=== PATIENT | female | born 1965 | race Caucasian/White ===

== ENCOUNTER 2020-01-23 06:01 | Outpatient (CLI) | payer OTHER ==
[2020-01-23 16:19] LABS: Hemoglobin 13.2 g/dL (12.0-16.0); Mean Corpuscular HGB CONC 31.9 g/dL (32.0-36.0); Mean Corpuscular Hemoglobin 21.2 pg (27.0-31.0); Mean Corpuscular Volume 66.5 fL (78.0-98.0); Mean Platelet Volume 11.9 fL (7.4-10.4); Platelet Count 203 thou/uL (130-400); RBC Distribution Width 14.5 % (11.5-14.5); Red Blood Cell (RBC) Count 6.24 mill/uL (4.20-5.40); White Blood Cell (WBC) Count 6.3 thou/uL (4.8-10.8)
[2020-01-23 16:20] LABS: INR-International Normal Ratio 1.1; PTT 28.9 sec (22.9-36.1); Prothrombin Time 13.8 sec (12.0-14.7)
[2020-01-23 17:06] LABS: Anion Gap 17 mmol/L (10-20); BUN (Urea Nitrogen) 25 mg/dL (9.8-20.1); Calc. Creatinine Clearance 0 mL/min (70-130); Calcium 9.4 mg/dL (7.8-10.44); Carbon Dioxide 24 mmol/L (22-29); Chloride 103 mmol/L (98-107); Estimated GFR-MDRD 90; Glucose 80 mg/dL (70-105); Potassium 4.2 mmol/L (3.5-5.1); Sodium 140 mmol/L (136-145)
[2020-01-24 14:48] LABS: SARS-CoV-2 MS2 Positive; SARS-CoV-2 N Gene Negative; SARS-CoV-2 S Gene Negative; SARS-CoV-2 by NAA Not Detected (NotDetected); SARS-CoV-2 orf1ab Negative
--- NOTE | 2020-01-26 15:45 | EKG ---
Test Reason : PREOP Blood Pressure : / mmHG Vent. Rate : 067 BPM Atrial Rate : 067 BPM P-R Int : 000 ms QRS Dur : 176 ms QT Int : 498 ms P-R-T Axes : 068 -68 092 degrees QTc Int : 526 ms Ventricular-paced rhythm with occasional Premature ventricular complexes Abnormal ECG When compared with ECG of 18-DEC-2019 14:02, Vent. rate has decreased BY 2 BPM Confirmed by JOSEP ACOSTA M.D. ([id number]) on 01/26/2020 3:45:35 PM Referred By: Prabhjot JUAREZ Confirmed By:JOSEP ACOSTA M.D.
== END 2020-01-23 06:02 | disposition home or self-care (01) ==
LOC: LABBT 06:01
PROVIDERS: ATTEND Internal Medicine Cardiovascular Disease
DX: Z01.818 Encounter for other preprocedural examination (principal); I50.9 Heart failure, unspecified; Z20.828 Contact with and (suspected) exposure to other viral communicable diseases
CPT/HCPCS: 80048; 85027; 85610; 85730; 87635; 93005; 93010; U0003

== ENCOUNTER 2020-01-28 06:31 | Day surgery (SDC) | payer OTHER ==
[2020-01-27 11:54] VITALS: BMI 31.4
[2020-01-28] MEDS ORDERED: Clindamycin/D5W 900 mg/50 ml Premix Bag ONE (06:48)
[2020-01-28] MEDS ORDERED: Levofloxacin 500 mg/D5W 100 ml Premix Bag ONE (06:48)
[2020-01-28] MEDS ORDERED: Midazolam HCl 2 mg/2 ml Vial ONE (08:01)
[2020-01-28] MEDS ORDERED: Propofol 500 MG/50 ML VIAL ONE (08:05)
[2020-01-28] MEDS ORDERED: Fentanyl 100 MCG/2 ML VIAL ONE ×2 (08:06→11:17)
[2020-01-28] MEDS ORDERED: Lidocaine 1% (PF) 30 ML VIAL ONE ×2 (08:09→08:13)
[2020-01-28] MEDS ORDERED: CEFAZOLIN 1 GM VIAL ONE (08:41)
[2020-01-28] MEDS ORDERED: Heparin 0 ML ONE (08:41)
[2020-01-28] MEDS ORDERED: Clindamycin/D5W 600 mg/50 ml Premix Bag ONE (08:49)
--- NOTE | 2020-01-28 11:47 | RAD ---
EXAM: Single view of the chest HISTORY: Upgraded biventricular pacemaker COMPARISON: 07/28/2016 FINDINGS: Single view of the chest shows an enlarged but stable cardiomediastinal silhouette. The pa tient is status post sternotomy. There is a triple lead pacemaker with its leads in the right atrium, right ventricle, and coronary sinus. No pneumothorax is seen. There is no evidence of consoli dation, mass, or pleural effusion. No acute osseous abnormality. IMPRESSION: Status post pacemaker exchange without acute cardiopulmonary process.
[2020-01-28] MEDS ORDERED: Acetaminophen/Codeine 30-300mg Tablet ONE (13:38)
[2020-01-28] MEDS ORDERED: Ondansetron PF 4 MG/2 ML Vial ONE (13:56)
[2020-01-28] MEDS ORDERED: PHENYLEPHRINE-NS 100 MCG/ML 10 ML SYRINGE ONE (14:40)
[2020-01-28] MEDS ORDERED: EPHEDRINE 25 MG/5 ML SYRINGE ONE (14:40)
[2020-01-28] MEDS ORDERED: Non-Formulary Medication 1 EACH PO PRN (15:22)
[2020-01-28] MEDS ORDERED: Promethazine HCl 25 MG/ML VIAL IM/IV PRN (15:30)
[2020-01-28] MEDS ORDERED: Ondansetron HCl/PF 4 MG/2 ML Vial IVP PRN (15:30)
[2020-01-28] MEDS ORDERED: Ketorolac Tromethamine 30 MG/ML VIAL IM/IV PRN (15:30)
[2020-01-28] MEDS ORDERED: Acetaminophen/Codeine 30-300mg Tablet PO PRN ×2 (15:30)
[2020-01-28] MEDS ORDERED: PACU-Morphine 4MG/ML VIAL SLOW IVP PRN (15:30)
[2020-01-28] MEDS ORDERED: Iopamidol 370 76% 50 ML VIAL FS ONE (16:10)
[2020-01-28] MEDS ORDERED: Clindamycin 150 MG CAP PO SCH (18:00)
== END 2020-01-28 15:18 | disposition home or self-care (01) ==
LOC: SDC 06:31
PROVIDERS: ATTEND Internal Medicine Cardiovascular Disease
PROC: 0JWT3PZ Revision of Cardiac Rhythm Related Device in Trunk Subcutaneous Tissue and Fascia, Percutaneous Approach (ICD-10-PCS; principal; 2020-01-28)
PROC: 02WA3MZ Revision of Cardiac Lead in Heart, Percutaneous Approach (ICD-10-PCS; principal; 2020-01-28)
DX: I11.0 Hypertensive heart disease with heart failure (principal); I50.20 Unspecified systolic (congestive) heart failure; I47.1 Supraventricular tachycardia; I42.9 Cardiomyopathy, unspecified; I27.20 Pulmonary hypertension, unspecified; Z79.82 Long term (current) use of aspirin; Z79.899 Other long term (current) drug therapy; Z88.0 Allergy status to penicillin; Z91.040 Latex allergy status; Z91.048 Other nonmedicinal substance allergy status
CPT/HCPCS: 33208; 33224; 36005; 71045; 75820; 76942; 93005; C1769; J0690; J1644; J1956; J2001; J2250; J2405; J2704; J3010; J3490; Q9967

== ENCOUNTER 2022-02-28 10:23 | Outpatient (CLI) | payer OTHER | END 2022-02-28 10:24 | disposition home or self-care (01) | LOC: RAD 10:23 | PROVIDERS: ATTEND Internal Medicine Cardiovascular Disease | DX: Z48.812 Encounter for surgical aftercare following surgery on the circulatory system (principal); Z95.0 Presence of cardiac pacemaker | CPT/HCPCS: 71046 ==